=== PATIENT | male | born 1970 | race Caucasian/White ===

== ENCOUNTER 2022-01-09 15:50 | Emergency (ER) | payer OTHER ==
[~2022-01-09] VITALS: Ht 165.1 cm; Wt 79.4 kg
[2022-01-09] MEDS ORDERED: COZAAR50 MG (15:58)
[2022-01-09] MEDS ORDERED: EZALLOR SPRINKLE5 MG (15:59)
[2022-01-09] MEDS ORDERED: HYDROCHLOROTH12.5 MG PO (19:19)
[2022-01-09] MEDS ORDERED: VISTARIL50 MG PO (19:19)
[2022-01-09] MEDS ORDERED: KETO10TA2 PO (19:19)
== END 2022-01-09 19:28 ==
LOC: ER 15:50
DX: F41.9 Anxiety disorder, unspecified (principal); R00.2 Palpitations; I10 Essential (primary) hypertension